=== PATIENT | female | born 1960 | race Caucasian/White ===

== ENCOUNTER 2021-11-04 07:23 | Emergency (ER) | payer BC ==
[2021-11-04] MEDS ORDERED: CASIRIVIMAB/IMDEVIMAB 10 ML in SODIUM CHLORIDE 100 ML IVPB ONE (08:35)
[2021-11-04 08:37] VITALS: BMI 23.1
[2021-11-04] MEDS ORDERED: ALBUTEROL SO4 HFA INHALER IH ONE (09:18)
[2021-11-04] MEDS ORDERED: ACETAMINOPHEN 325 MG TABLET (FP) PO ONE (12:14)
[2021-11-04 12:42] VITALS: BP 96/61; PULSE 72; TEMP 100.2
== END 2021-11-04 13:09 | disposition home or self-care (01) ==
LOC: JCOVINFU 07:23
PROC: 3E03329 Introduction of Other Anti-infective into Peripheral Vein, Percutaneous Approach (ICD-10-PCS; principal; 2021-11-04)
PROC: 3E0F7GC Introduction of Other Therapeutic Substance into Respiratory Tract, Via Natural or Artificial Opening (ICD-10-PCS; 2021-11-04)
DX: U07.1 COVID-19 (principal)
CPT/HCPCS: 71046-TC-FY; 93005; 93010; 99284-25; Q0240